=== PATIENT | male | born 1980 | race Caucasian/White ===

== ENCOUNTER 2021-01-03 23:51 | Emergency (ER) | payer BC ==
[~2021-01-03] VITALS: Ht 185.4 cm; Wt 72.6 kg
[2021-01-04] MEDS ORDERED: HYDROCODONE/APAP 10MG-325MG TAB PO ONE (00:30)
[2021-01-04] MEDS ORDERED: DIAZEPAM 5 MG TAB PO PRN (00:30)
[2021-01-04] MEDS ORDERED: CYCLOBENZAPRINE5 MG PO (01:22)
[2021-01-04 01:47] VITALS: BP 129/85
== END 2021-01-04 01:35 | disposition other institution (70) ==
LOC: ER 01-04 00:29
DX: R07.89 Other chest pain (principal)
CPT/HCPCS: 99284